=== PATIENT | male | born 1985 | race Caucasian/White ===

== ENCOUNTER 2019-08-11 15:24 | Emergency (ER) | payer OTHER, BC ==
[2019-08-11] MEDS ORDERED: IBUPROFEN 800 MG TABLET PO ONE (16:12)
--- NOTE | 2019-08-11 16:17 | ER Document Report ---
HPI - HPI Patient complains to provider of: ankle pain Time Seen by Provider: 08/11/19 16:05 Onset: Just prior to arrival Onset/Duration: Sudden Quality of pain: Achy Severity: Moderate Context: 34-year-old male presents with right ankle pain. He reports he stepped out of a box work truck and rolled his ankle. Reports he was able to walk afterwards but reports it was painful. Right ankle swollen. Denies history of fracture to that ankle. Associated Symptoms: None Exacerbated by: Walking Relieved by: Denies Similar symptoms previously: No Recently seen / treated by doctor: No Past Medical History - General Information source: Patient - Social History Smoking Status: Unknown if Ever Smoked Cigarette use (# per day): No Frequency of alcohol use: None Drug Abuse: None Family History: None Patient has suicidal ideation: No Patient has homicidal ideation: No Traumatic Medical History: Reports: Hx Fractures Past Surgical History: Reports: Hx Orthopedic Surgery Vertical Provider Document - CONSTITUTIONAL Agree With Documented VS: Yes Exam Limitations: No Limitations General Appearance: WD/WN, Mild Distress - winces when ankle palpated - HEENT HEENT: Atraumatic, Normocephalic - NECK Neck: Supple - RESPIRATORY Respiratory: No Respiratory Distress - MUSCULOSKELETAL/EXTREMETIES Musculoskeletal/Extremeties: MAEW, FROM, Tender - Right ankle tender to palpate lateral swelling good pedal pulse good cap refill - NEURO Level of Consciousness: Awake, Alert, Appropriate Motor/Sensory: No Motor Deficit - DERM Integumentary: Warm, Dry Adult Front & Back Diagram: 1 - +Swelling, patient reports tender to palpate Course - Re-evaluation Re-evalutation: 08/11/19 16:16 This 34-year-old male presents the emergency department with right ankle pain. Reports he stepped out of a box truck and rolled his ankle. Reports he has sprained his ankle in the past but no fractures. Patient was offered pain medication accepted Motrin. Good pedal pulse good cap refill. X-ray ordered. 08/11/19 17:01 Patient instructed on negative x-ray. Antony wrap and crutches provided. Patient was instructed for continued pain to return to the emergency department or follow-up with primary care provider provider for repeat x-ray he verbalized understanding to all instructions. Ankle X-Ray 08/11/19 16:11 IMPRESSION: Soft tissue swelling. No fracture. - Diagnostic Test Radiology reviewed: Image reviewed, Reports reviewed Discharge - Discharge Clinical Impression: Right ankle pain and injury Condition: Stable Disposition: HOME, SELF-CARE Instructions: Antony Wrap ([facility]), Use of Crutches ([facility]), Family Physicians / Practices, Use of Nmbx-[id number]-[id number] Ibuprofen ([facility]), Ice & Elevation ([facility]) Additional Instructions: *You have been evaluated for an ankle injury Your x-ray of your ankle did not show any acute fracture *Rest/Ice/Elevate your ankle *Maintain the splint *Use your crutches *Follow up with your primary care provider within 1 week for referral to orthopedics as indicated. *Take Tylenol or Motrin as indicated for pain *Return to ED for worsening condition, changes, needs
[2019-08-11 16:31] VITALS: BP 110/82
--- NOTE | 2019-08-11 16:54 | RADIOLOGY REPORT (SQ) ---
EXAM DESCRIPTION: ANKLE RIGHT COMPLETE COMPLETED DATE/TIME: 08/11/2019 4:45 pm REASON FOR STUDY: pain, rolled ankle swelling COMPARISON: None. NUMBER OF VIEWS: Three views. TECHNIQUE: AP, lateral, and oblique radiographic images acquired of the right ankle. LIMITATIONS: None. FINDINGS: MINERALIZATION: Normal. BONES: No acute fracture or dislocation. No worrisome bone lesions. JOINTS: No effusions. SOFT TISSUES: Lateral soft tissue swelling. OTHER: No other significant finding. IMPRESSION: Soft tissue swelling. No fracture. TECHNICAL DOCUMENTATION: JOB ID: [id number] [employer]- All Rights Reserved Reading location - IP/workstation name: [email or web address]
== END 2019-08-11 17:15 | disposition home or self-care (01) ==
LOC: ER 15:24
DX: S99.911A Unspecified injury of right ankle, initial encounter (principal); M25.571 Pain in right ankle and joints of right foot; X50.0XXA Overexertion from strenuous movement or load, initial encounter; Y93.89 Activity, other specified; Y99.0 Civilian activity done for income or pay